=== PATIENT | female | born 1980 | race Caucasian/White ===

== ENCOUNTER 2018-07-18 12:54 | Emergency (ER) | payer MEDICAID, OTHER ==
[~2018-07-18] VITALS: Ht 162.6 cm; Wt 107.0 kg
[~2018-07-18 12:54] MED LIST: ABIL5 PO
[2018-07-18 12:56] VITALS: BP 148/55
== END 2018-07-18 17:42 | disposition home or self-care (01) ==
LOC: ER 12:54
DX: L03.115 Cellulitis of right lower limb (principal); I10 Essential (primary) hypertension; F20.9 Schizophrenia, unspecified; J45.909 Unspecified asthma, uncomplicated; Z88.0 Allergy status to penicillin
CPT/HCPCS: 99283

== ENCOUNTER 2019-01-21 18:50 | Emergency (ER) | payer OTHER ==
[~2019-01-21] VITALS: Ht 162.6 cm; Wt 101.0 kg
[2019-01-22] MEDS ORDERED: PREDNISONE 20MG TABLET PO STA (07:02)
[2019-01-22] MEDS ORDERED: IPRATROPIUM BROMIDE (0.02%) 0.5MG/2.5ML NEB HHN STA (07:02)
[2019-01-22] MEDS ORDERED: ALBUTEROL (0.083%) 2.5MG/3ML NEB HHN STA (07:02)
[2019-01-22 09:09] VITALS: BP 147/70
== END 2019-01-22 09:10 | disposition home or self-care (01) ==
LOC: ER 18:50
DX: J45.901 Unspecified asthma with (acute) exacerbation (principal); I10 Essential (primary) hypertension; F17.200 Nicotine dependence, unspecified, uncomplicated; Z88.0 Allergy status to penicillin; Z79.899 Other long term (current) drug therapy
CPT/HCPCS: 94644; 99285; J7512; J7611; Z7610

== ENCOUNTER 2019-04-22 11:33 | Emergency (ER) | payer OTHER ==
[~2019-04-22] VITALS: Ht 167.6 cm; Wt 113.0 kg
[2019-04-22] MEDS ORDERED: SODIUM CHLORIDE 0.9% 1,000 ML IV ONE (11:52)
[2019-04-22] MEDS ORDERED: METHYLPREDNISOLONE SOD SUCC 125 MG/2 ML VIAL IV STA (11:52)
[2019-04-22] MEDS ORDERED: IPRATROPIUM BROMIDE (0.02%) 0.5MG/2.5ML NEB HHN STA (11:52)
[2019-04-22] MEDS ORDERED: KETOROLAC 30MG/ML VIAL IV STA (11:52)
[2019-04-22] MEDS ORDERED: ALBUTEROL (0.083%) 2.5MG/3ML NEB HHN STA (11:52)
[2019-04-22] MEDS ORDERED: METOCLOPRAMIDE HCL 10MG/2ML VIAL IV ONE (12:00)
[2019-04-22 13:30] VITALS: BP 148/93
== END 2019-04-22 13:55 | disposition home or self-care (01) ==
LOC: ER 11:33
DX: J45.901 Unspecified asthma with (acute) exacerbation (principal); R51 Headache; I10 Essential (primary) hypertension; Z88.5 Allergy status to narcotic agent
CPT/HCPCS: 94644; 96361; 96374; 96375; 99285; J1885; J2765; J2930; J7030; J7611; Z7610

== ENCOUNTER 2019-07-08 11:06 | Emergency (ER) | payer OTHER ==
[~2019-07-08] VITALS: Ht 167.6 cm; Wt 105.0 kg
[2019-07-08] MEDS ORDERED: ONDANSETRON HCL 4MG/2ML INJ IV STA (11:24)
[2019-07-08] MEDS ORDERED: KETOROLAC 30MG/ML VIAL IV STA (11:24)
[2019-07-08] MEDS ORDERED: SODIUM CHLORIDE 0.9% 1,000 ML IV ONE (11:24)
[2019-07-08] MEDS ORDERED: FAMOTIDINE 20MG/2ML VIAL IV ONE (11:30)
[2019-07-08 12:04] LABS: BASOPHILS % 0.9 % (0.0-2.0); EOSINOPHILS % 6.6 % (0.0-5.0); HEMATOCRIT. 37.5 % (36.0-48.0); HEMOGLOBIN. 12.3 g/dL (12.0-16.0); LYMPHOCYTES % 26.6 % (20.0-50.0); MEAN CORPUSCULAR HEMOGLOBIN 26.1 pg (28.0-32.0); MEAN CORPUSCULAR VOLUME 79.4 fL (81.0-99.0); MEAN PLATELET VOLUME 9.9 fl (7.4-10.4); NEUTROPHILS % 58.9 % (40.0-76.0); PLATELET 214 x1000/uL (130-400); RED BLOOD CELL COUNT 4.73 mill/uL (4.2-5.4); RED CELL DISTRIBUTION WIDTH 15.6 % (11.6-14.6)
[2019-07-08 12:13] LABS: CHLORIDE 101 mEq/L (98-107)
[2019-07-08 12:38] LABS: CLARITY URINE CLOUDY (CLEAR); COLOR URINE YELLOW (YELLOW); KETONES URINE NEGATIVE (NEGATIVE); LEUKOCYTE ESTERASE URINE 1+ (NEGATIVE); NITRITE URINE NEGATIVE (NEGATIVE); OCCULT BLOOD URINE NEGATIVE (NEGATIVE); PROTEIN URINE 1+ (NEGATIVE); SPECIFIC GRAVITY URINE 1.028 (1.005-1.030)
[2019-07-08 13:38] VITALS: BP 133/85
== END 2019-07-08 13:50 | disposition home or self-care (01) ==
LOC: ER 11:23
DX: N39.0 Urinary tract infection, site not specified (principal); R11.2 Nausea with vomiting, unspecified; I10 Essential (primary) hypertension; F41.9 Anxiety disorder, unspecified
CPT/HCPCS: 36415; 80053; 81003; 81025; 83690; 85025; 87086; 96361; 96374; 96375; 99283; J1885; J2405; J3490; J7030; Z7610

== ENCOUNTER 2019-09-02 11:58 | Emergency (ER) | payer OTHER ==
[~2019-09-02] VITALS: Ht 162.6 cm; Wt 114.0 kg
[2019-09-02] MEDS ORDERED: METHYLPREDNISOLONE SOD SUCC 125 MG/2 ML VIAL IV STA (13:35)
[2019-09-02] MEDS ORDERED: IPRATROPIUM BROMIDE (0.02%) 0.5MG/2.5ML NEB HHN STA (13:35)
[2019-09-02] MEDS ORDERED: SODIUM CHLORIDE 0.9% 1,000 ML IV ONE (13:35)
[2019-09-02] MEDS ORDERED: ALBUTEROL (0.083%) 2.5MG/3ML NEB HHN STA (13:35)
[2019-09-02 14:37] LABS: BASOPHILS % 0.9 % (0.0-2.0); EOSINOPHILS % 10.8 % (0.0-5.0); HEMATOCRIT. 37.9 % (36.0-48.0); HEMOGLOBIN. 12.1 g/dL (12.0-16.0); LYMPHOCYTES % 16.5 % (20.0-50.0); MEAN CORPUSCULAR HEMOGLOBIN 25.7 pg (28.0-32.0); MEAN CORPUSCULAR VOLUME 80.3 fL (81.0-99.0); MONOCYTES % 8.4 % (2.0-8.0); NEUTROPHILS % 63.4 % (40.0-76.0); PLATELET 196 x1000/uL (130-400); RED BLOOD CELL COUNT 4.72 mill/uL (4.2-5.4); RED CELL DISTRIBUTION WIDTH 15.5 % (11.6-14.6)
[2019-09-02 14:44] LABS: CHLORIDE 107 mEq/L (98-107)
[2019-09-02 17:14] LABS: CLARITY URINE CLEAR (CLEAR); COLOR URINE YELLOW (YELLOW); KETONES URINE NEGATIVE (NEGATIVE); LEUKOCYTE ESTERASE URINE NEGATIVE (NEGATIVE); NITRITE URINE NEGATIVE (NEGATIVE); OCCULT BLOOD URINE 3+ (NEGATIVE); PROTEIN URINE 2+ (NEGATIVE); SPECIFIC GRAVITY URINE 1.037 (1.005-1.030); UROBILINOGEN URINE 0.2 E.U./dL (0.2-1.0)
[2019-09-02 17:52] VITALS: BP 150/92
== END 2019-09-02 18:08 | disposition home or self-care (01) ==
LOC: ER 11:58
DX: J45.901 Unspecified asthma with (acute) exacerbation (principal); N39.0 Urinary tract infection, site not specified; E11.9 Type 2 diabetes mellitus without complications; F17.210 Nicotine dependence, cigarettes, uncomplicated; Z71.6 Tobacco abuse counseling; Z88.0 Allergy status to penicillin; Z79.899 Other long term (current) drug therapy
CPT/HCPCS: 36415; 71045; 80053; 81003; 83880; 84484; 85025; 87086; 87804; 93005; 94640; 99284; 99406; J2930; J7030; J7611; Z7610

== ENCOUNTER 2019-10-07 16:53 | Emergency (ER) | payer OTHER ==
[~2019-10-07] VITALS: Ht 172.7 cm; Wt 91.0 kg
[2019-10-07] MEDS ORDERED: ALBUTEROL (0.083%) 2.5MG/3ML NEB HHN ONE ×2 (20:15→20:45)
[2019-10-07] MEDS ORDERED: PREDNISONE 20MG TABLET PO ONE (20:15)
[2019-10-07 21:35] VITALS: BP 155/89
== END 2019-10-07 20:21 | disposition home or self-care (01) ==
LOC: ER 16:53
DX: J45.901 Unspecified asthma with (acute) exacerbation (principal); E11.9 Type 2 diabetes mellitus without complications; Z88.0 Allergy status to penicillin
CPT/HCPCS: 94640; 99284; J7512; J7610; Z7610

== ENCOUNTER 2019-10-21 14:06 | Emergency (ER) | payer OTHER ==
[~2019-10-21] VITALS: Ht 162.6 cm; Wt 118.0 kg
[2019-10-21 14:18] VITALS: BP 170/97
[2019-10-21] MEDS ORDERED: ALBUTEROL (0.083%) 2.5MG/3ML NEB HHN STA ×2 (15:03→16:38)
[2019-10-21] MEDS ORDERED: PREDNISONE 20MG TABLET PO STA (15:03)
[2019-10-21] MEDS ORDERED: IPRATROPIUM BROMIDE (0.02%) 0.5MG/2.5ML NEB HHN STA ×2 (15:03→16:38)
== END 2019-10-21 18:08 | disposition home or self-care (01) ==
LOC: ER 14:21
DX: J45.901 Unspecified asthma with (acute) exacerbation (principal); L30.8 Other specified dermatitis; Z88.0 Allergy status to penicillin
CPT/HCPCS: 71045; 81025; 94640; 99284; J7512; J7610; Z7610

== ENCOUNTER 2019-11-10 10:18 | Emergency (ER) | payer OTHER ==
[~2019-11-10] VITALS: Ht 162.6 cm; Wt 118.0 kg
[2019-11-10 10:34] VITALS: BP 150/98
[2019-11-10] MEDS ORDERED: TRANEXAMIC ACID 1,000 MG/10 ML TP ONE (12:30)
== END 2019-11-10 15:21 | disposition home or self-care (01) ==
LOC: ER 10:18
DX: R04.0 Epistaxis (principal); J45.901 Unspecified asthma with (acute) exacerbation; G47.30 Sleep apnea, unspecified; Z88.0 Allergy status to penicillin
CPT/HCPCS: 99282

== ENCOUNTER 2020-01-02 09:48 | Emergency (ER) | payer OTHER ==
[~2020-01-02] VITALS: Ht 165.1 cm; Wt 113.8 kg
[2020-01-02] MEDS ORDERED: IPRATROPIUM BROMIDE (0.02%) 0.5MG/2.5ML NEB HHN STA (10:14)
[2020-01-02] MEDS ORDERED: ALBUTEROL (0.083%) 2.5MG/3ML NEB HHN STA (10:14)
[2020-01-02] MEDS ORDERED: PREDNISONE 20MG TABLET PO STA (10:14)
[2020-01-02 11:30] VITALS: BP 146/94
== END 2020-01-02 11:30 | disposition home or self-care (01) ==
LOC: ER 10:17
DX: J45.901 Unspecified asthma with (acute) exacerbation (principal); D64.9 Anemia, unspecified; Z88.0 Allergy status to penicillin
CPT/HCPCS: 71045; 94640; 99283; J7512; Z7610

== ENCOUNTER 2020-03-06 09:03 | Emergency (ER) | payer OTHER ==
[~2020-03-06] VITALS: Ht 165.1 cm; Wt 100.0 kg
[2020-03-06] MEDS ORDERED: PREDNISONE 20MG TABLET PO STA (09:30)
[2020-03-06] MEDS ORDERED: IPRATROPIUM BROMIDE (0.02%) 0.5MG/2.5ML NEB HHN STA (09:30)
[2020-03-06] MEDS ORDERED: ALBUTEROL (0.083%) 2.5MG/3ML NEB HHN STA (09:30)
[2020-03-06 11:16] VITALS: BP 150/78
== END 2020-03-06 11:17 | disposition home or self-care (01) ==
LOC: ER 09:03
DX: J45.901 Unspecified asthma with (acute) exacerbation (principal); Z88.0 Allergy status to penicillin
CPT/HCPCS: 81025; 94640; 99283; J7512; Z7610

== ENCOUNTER 2020-08-08 16:18 | Emergency (ER) | payer OTHER ==
[~2020-08-08] VITALS: Ht 162.6 cm; Wt 150.0 kg
[2020-08-08] MEDS ORDERED: PREDNISONE 20MG TABLET PO ONE (16:45)
[2020-08-08 18:20] VITALS: BP 133/90
== END 2020-08-08 18:20 | disposition home or self-care (01) ==
LOC: ER 16:18
DX: J45.901 Unspecified asthma with (acute) exacerbation (principal); I10 Essential (primary) hypertension; Z88.0 Allergy status to penicillin; Z79.899 Other long term (current) drug therapy
CPT/HCPCS: 71045; 81025; 93005; 99283; J7512

== ENCOUNTER 2021-01-17 12:02 | Emergency (ER) | payer OTHER ==
[~2021-01-17] VITALS: Ht 162.6 cm; Wt 94.0 kg
[2021-01-17] MEDS ORDERED: ONDANSETRON 4MG ODT PO STA (12:23)
[2021-01-17 12:43] LABS: CLARITY URINE CLOUDY (CLEAR); COLOR URINE YELLOW (YELLOW); KETONES URINE NEGATIVE (NEGATIVE); LEUKOCYTE ESTERASE URINE NEGATIVE (NEGATIVE); NITRITE URINE NEGATIVE (NEGATIVE); OCCULT BLOOD URINE NEGATIVE (NEGATIVE); PH URINE 7.5 (4.5-8.0); PROTEIN URINE TRACE (NEGATIVE)
[2021-01-17 12:47] LABS: BASOPHILS % 0.8 % (0.0-2.0); EOSINOPHILS % 1.9 % (0.0-5.0); HEMATOCRIT. 36.8 % (36.0-48.0); HEMOGLOBIN. 12.1 g/dL (12.0-16.0); LYMPHOCYTES % 17.2 % (20.0-50.0); MEAN CORPUSCULAR HEMOGLOBIN 26.1 pg (28.0-32.0); MEAN CORPUSCULAR VOLUME 79.4 fL (81.0-99.0); MEAN PLATELET VOLUME 9.4 fl (7.4-10.4); MONOCYTES % 4.7 % (2.0-8.0); NEUTROPHILS % 75.4 % (40.0-76.0); PLATELET 245 x1000/uL (130-400); RED BLOOD CELL COUNT 4.64 mill/uL (4.2-5.4); RED CELL DISTRIBUTION WIDTH 14.5 % (11.6-14.6)
[2021-01-17 12:54] LABS: CHLORIDE 104 mEq/L (98-107)
[2021-01-17 12:56] LABS: INR 0.9; PROTHROMBIN TIME 9.9 sec (9.6-11.0)
[2021-01-17 13:23] LABS: HCG SCREEN NEGATIVE
[2021-01-17 16:12] VITALS: BP 144/91
== END 2021-01-17 16:48 | disposition home or self-care (01) ==
LOC: ER 12:08
DX: R10.33 Periumbilical pain (principal); I10 Essential (primary) hypertension; J45.909 Unspecified asthma, uncomplicated; Z88.0 Allergy status to penicillin
CPT/HCPCS: 36415; 74176; 80053; 81003; 81025; 83690; 84703; 85025; 85610; 99284; Q0162

== ENCOUNTER 2021-07-02 02:34 | Emergency (ER) | payer OTHER ==
[~2021-07-02] VITALS: Ht 170.2 cm; Wt 119.2 kg
[2021-07-02] MEDS ORDERED: ALBU18HF2 IH (03:02)
[2021-07-02] MEDS ORDERED: ALBUTEROL (0.5%) 2.5MG/0.5ML NEB HHN ONE (03:15)
[2021-07-02] MEDS ORDERED: IPRATROPIUM BROMIDE (0.02%) 0.5MG/2.5ML NEB HHN ONE (03:15)
[2021-07-02] MEDS ORDERED: PREDNISONE 20MG TABLET PO ONE (03:15)
[2021-07-02 05:07] VITALS: BP 169/100
== END 2021-07-02 05:08 | disposition home or self-care (01) ==
LOC: ER 02:34
DX: J45.901 Unspecified asthma with (acute) exacerbation (principal); E11.9 Type 2 diabetes mellitus without complications; I10 Essential (primary) hypertension; Z88.0 Allergy status to penicillin; Z76.0 Encounter for issue of repeat prescription
CPT/HCPCS: 94640; 99283; J7512; Z7610

== ENCOUNTER 2021-07-18 08:38 | Inpatient (IN) | payer OTHER ==
[~2021-07-18] VITALS: Ht 167.6 cm; Wt 117.5 kg
[~2021-07-18 08:38] MED LIST changes: +ALBU18HF2 IH
[2021-07-18] MEDS ORDERED: IPRATROPIUM BROMIDE (0.02%) 0.5MG/2.5ML NEB HHN STA (09:04)
[2021-07-18] MEDS ORDERED: ALBUTEROL (0.083%) 2.5MG/3ML NEB HHN STA (09:04)
[2021-07-18] MEDS ORDERED: PREDNISONE 20MG TABLET PO STA (09:04)
[2021-07-18 09:33] LABS: BASOPHILS % 0.7 % (0.0-2.0); EOSINOPHILS % 8.5 % (0.0-5.0); HEMATOCRIT. 39.1 % (36.0-48.0); HEMOGLOBIN. 12.4 g/dL (12.0-16.0); LYMPHOCYTES % 16.1 % (20.0-50.0); MEAN CORPUSCULAR HEMOGLOBIN 25.4 pg (28.0-32.0); MEAN CORPUSCULAR VOLUME 80.4 fL (81.0-99.0); MEAN PLATELET VOLUME 10.5 fl (7.4-10.4); MONOCYTES % 6.2 % (2.0-8.0); NEUTROPHILS % 68.5 % (40.0-76.0); PLATELET 234 x1000/uL (130-400); RED BLOOD CELL COUNT 4.86 mill/uL (4.2-5.4); RED CELL DISTRIBUTION WIDTH 14.6 % (11.6-14.6)
[2021-07-18 09:36] LABS: CHLORIDE 105 mEq/L (98-107)
[2021-07-18] MEDS ORDERED: METHYLPREDNISOLONE SOD SUCC 125 MG/2 ML VIAL IV STA (09:56)
[2021-07-18] MEDS ORDERED: MAGNESIUM 2 G PREMIX 50 ML IV STA (09:56)
[2021-07-18 15:11] LABS: BG BASE EXCESS 0.8 mmol/L (-2.0-2.0); BG CARBOXYHEMOGLOBIN 0.3 % (0.5-1.5); BG DEOXYHEMOGLOBIN 0.8 % (0.0-5.0); BG FRACTION INSPIRED OXYGEN 60; BG HCO3 ACT 28.6 mmol/L (22.0-26.0); BG METHEMOGLOBIN 0.4 % (0.0-1.5); BG OXYGEN SATURATION 99.2 % (92.0-98.5); BG OXYHEMOGLOBIN 98.5 % (94.0-97.0); BG PH 7.296 (7.350-7.450); BG SAMPLE SITE RIGHT RADIAL; BG TOTAL HEMOGLOBIN 13.7 g/dL (12.0-18.0); BG VENT MODE MASK - BIPAP
[2021-07-18] MEDS ORDERED: DOCUSATE SODIUM 100MG CAPSULE PO PRN (16:30)
[2021-07-18] MEDS ORDERED: CLONIDINE 0.1MG TABLET PO PRN (16:30)
[2021-07-18] MEDS ORDERED: IPRATROPIUM/ALBUTEROL 0.5-3(2.5)MG/3ML NEB NEB PRN (16:30)
[2021-07-18] MEDS ORDERED: ONDANSETRON HCL 4MG/2ML INJ IV PRN (16:30)
[2021-07-18] MEDS ORDERED: GUAIFENESIN 200MG/10ML SUGAR FREE UDC PO PRN (16:30)
[2021-07-18] MEDS ORDERED: ACETAMINOPHEN 650MG SUPP PR PRN (16:30)
[2021-07-18] MEDS ORDERED: DIPHENHYDRAMINE 50MG/ML VIAL IV PRN (16:30)
[2021-07-18] MEDS ORDERED: NA PHOS,M-B/NA PHOS,DI-BA ENEMA 118ML PR PRN (16:30)
[2021-07-18] MEDS ORDERED: ACETAMINOPHEN 325MG TABLET PO PRN (16:30)
[2021-07-18] MEDS ORDERED: LORAZEPAM 0.5MG TABLET PO PRN (16:30)
[2021-07-18] MEDS ORDERED: MAGNESIUM/ALUMINUM HYDROXIDE/SIMETHICONE 30ML UDC PO PRN (16:30)
[2021-07-18] MEDS ORDERED: HYDROCODONE/ACETAMINOPHEN 5/325MG TABLET PO PRN (16:30)
[2021-07-18 17:50] LABS: INR 0.9; PROTHROMBIN TIME 10.2 sec (9.6-11.0)
[2021-07-18] MEDS: METHYLPREDNISOLONE SOD SUCC 40 MG/ML VIAL IV SCH (17:53)
[2021-07-18] MEDS ORDERED: LEVOFLOXACIN 500MG PREMIX 100 ML IV SCH (18:00)
[2021-07-18] MEDS: ENOXAPARIN 30MG/0.3ML SYR SUBCUT SCH (20:44)
[2021-07-18] MEDS ORDERED: FAMOTIDINE 20MG TABLET PO SCH (21:00)
[2021-07-18 22:00] VITALS: BP 121/72
[2021-07-18 22:54] VITALS: BP 121/72
[2021-07-19] VITALS (10 sets, daily range): BP systolic 137–174; BP diastolic 67–109
[2021-07-19] MEDS: IPRATROPIUM/ALBUTEROL 0.5-3(2.5)MG/3ML NEB NEB SCH ×3 (01:55→13:20)
[2021-07-19] MEDS: METHYLPREDNISOLONE SOD SUCC 40 MG/ML VIAL IV SCH ×2 (04:31→09:23)
[2021-07-19 07:00] LABS: BASOPHILS % 0.2 % (0.0-2.0); CHLORIDE 103 mEq/L (98-107); HEMATOCRIT. 37.6 % (36.0-48.0); HEMOGLOBIN. 11.8 g/dL (12.0-16.0); LYMPHOCYTES % 8.1 % (20.0-50.0); MEAN CORPUSCULAR VOLUME 79.5 fL (81.0-99.0); MEAN PLATELET VOLUME 10.7 fl (7.4-10.4); MONOCYTES % 1.7 % (2.0-8.0); PLATELET 259 x1000/uL (130-400); RED BLOOD CELL COUNT 4.72 mill/uL (4.2-5.4); RED CELL DISTRIBUTION WIDTH 14.6 % (11.6-14.6)
[2021-07-19 07:11] LABS: CREATINE KINASE 276 IU/L (26-192)
[2021-07-19 07:14] LABS: CREATINE KINASE MB FRACTION 3.5 ng/mL (0.5-3.6)
[2021-07-19] MEDS: ENOXAPARIN 30MG/0.3ML SYR SUBCUT SCH (09:23)
[2021-07-19 11:48] LABS: BG BASE EXCESS 0.2 mmol/L (-2.0-2.0); BG DEOXYHEMOGLOBIN 5.7 % (0.0-5.0); BG FRACTION INSPIRED OXYGEN 21; BG METHEMOGLOBIN 0.2 % (0.0-1.5); BG OXYGEN SATURATION 94.3 % (92.0-98.5); BG OXYHEMOGLOBIN 94.1 % (94.0-97.0); BG PCO2 46.5 mmHg (35.0-45.0); BG PH 7.365 (7.350-7.450); BG PO2 73.9 mmHg (75.0-100.0); BG SAMPLE SITE RIGHT RADIAL; BG TOTAL HEMOGLOBIN 12.2 g/dL (12.0-18.0); BG VENT MODE ROOM AIR
[2021-07-19] MEDS ORDERED: LEVO500T89 MT (15:03)
[2021-07-19] MEDS ORDERED: IPRA3AMP9 NEB (15:03)
[2021-07-19] MEDS ORDERED: P20 PO (15:03)
[2021-07-19] MEDS ORDERED: NALOXONE HCL 0.4MG/ML VIAL IV PRN (15:30)
== END 2021-07-19 18:05 | disposition home or self-care (01) | DRG 133 ==
LOC: ER 09:41 → 5EST 13:26 → EDBEDREQTM 13:29 → EDBEDREQ 13:29 → SUPCPDRO 16:07 → ENRESERV 19:59 → 5EST 22:48
PROVIDERS: ADMIT Internal Medicine; ATTEND Internal Medicine
PROC: 5A09357 Assistance with Respiratory Ventilation, Less than 24 Consecutive Hours, Continuous Positive Airway Pressure (ICD-10-PCS; principal; 2021-07-18)
DX: J96.00 Acute respiratory failure, unspecified whether with hypoxia or hypercapnia (principal); E87.2 Acidosis; J45.901 Unspecified asthma with (acute) exacerbation; E66.2 Morbid (severe) obesity with alveolar hypoventilation; F29 Unspecified psychosis not due to a substance or known physiological condition; I10 Essential (primary) hypertension; Z20.822 Contact with and (suspected) exposure to COVID-19; Z79.899 Other long term (current) drug therapy; Z88.0 Allergy status to penicillin; Z68.41 Body mass index [BMI] 40.0-44.9, adult
CPT/HCPCS: 36415; 36600; 71045; 80053; 82375; 82550; 82553; 82805; 83880; 84443; 84484; 85025; 87426; 87804; 93005; 93306; 93970; 94640; 94660; 99291; J1650; J1956; J2920; J2930; J3475; J7040

== ENCOUNTER 2021-09-11 18:19 | Emergency (ER) | payer OTHER ==
[~2021-09-11] VITALS: Ht 162.6 cm; Wt 117.0 kg
[~2021-09-11 18:19] MED LIST changes: +IPRA3AMP9 NEB; +LEVO500T89 MT; +P20 PO
[2021-09-11] MEDS ORDERED: DEXAMETHASONE 4MG TABLET PO ONE (19:15)
[2021-09-11] MEDS ORDERED: ACETAMINOPHEN 325MG TABLET PO STA (19:20)
[2021-09-11 20:09] LABS: BASOPHILS % 0.6 % (0.0-2.0); EOSINOPHILS % 5.9 % (0.0-5.0); HEMATOCRIT. 38.1 % (36.0-48.0); LYMPHOCYTES % 18.4 % (20.0-50.0); MEAN CORPUSCULAR HEMOGLOBIN 24.8 pg (28.0-32.0); MEAN CORPUSCULAR VOLUME 78.8 fL (81.0-99.0); MEAN PLATELET VOLUME 10.1 fl (7.4-10.4); MONOCYTES % 4.1 % (2.0-8.0); PLATELET 221 x1000/uL (130-400); RED BLOOD CELL COUNT 4.84 mill/uL (4.2-5.4); RED CELL DISTRIBUTION WIDTH 14.7 % (11.6-14.6)
[2021-09-11 20:19] LABS: CHLORIDE 106 mEq/L (98-107)
[2021-09-11] MEDS ORDERED: IPRATROPIUM/ALBUTEROL 0.5-3(2.5)MG/3ML NEB HHN ONE ×2 (21:30→22:30)
[2021-09-11] MEDS ORDERED: P20 PO (22:30)
[2021-09-11] MEDS ORDERED: ALBU18HF2 IH ×2 (22:30)
[2021-09-11] MEDS ORDERED: DEXA6TAB MT (22:30)
[2021-09-11] MEDS ORDERED: ALBU90AE INH (22:30)
[2021-09-11] MEDS ORDERED: ALBU05 NEB (22:31)
[2021-09-11 23:52] VITALS: BP 178/95
== END 2021-09-11 23:52 | disposition home or self-care (01) ==
LOC: ER 18:19
DX: J45.901 Unspecified asthma with (acute) exacerbation (principal); I10 Essential (primary) hypertension; Z88.0 Allergy status to penicillin; Z79.899 Other long term (current) drug therapy; Z20.822 Contact with and (suspected) exposure to COVID-19
CPT/HCPCS: 36415; 80053; 83690; 85025; 87426; 94640; 99284; Z7610; J8540

== ENCOUNTER 2021-09-23 02:54 | Emergency (ER) | payer OTHER ==
[~2021-09-23] VITALS: Ht 170.2 cm; Wt 91.0 kg
[~2021-09-23 02:54] MED LIST changes: +ALBU05 NEB; +ALBU90AE INH; +DEXA6TAB MT
[2021-09-23] MEDS ORDERED: ALBUTEROL (0.083%) 2.5MG/3ML NEB HHN STA (03:03)
[2021-09-23] MEDS ORDERED: PREDNISONE 20MG TABLET PO STA (03:03)
[2021-09-23] MEDS ORDERED: IPRATROPIUM BROMIDE (0.02%) 0.5MG/2.5ML NEB HHN STA (03:03)
[2021-09-23] MEDS ORDERED: AMLODIPINE 5MG TABLET PO NR (03:30)
[2021-09-23 03:49] VITALS: BP 140/96
[2021-09-23] MEDS ORDERED: AZIT250T12 MT (04:52)
[2021-09-23] MEDS ORDERED: IPRA3AMP9 NEB (04:52)
[2021-09-23] MEDS ORDERED: ALBU90AE INH (04:52)
[2021-09-23] MEDS ORDERED: P20 PO (04:52)
== END 2021-09-23 05:24 | disposition home or self-care (01) ==
LOC: ER 02:54
DX: J44.1 Chronic obstructive pulmonary disease with (acute) exacerbation (principal); Z79.899 Other long term (current) drug therapy; Z88.0 Allergy status to penicillin; Z20.822 Contact with and (suspected) exposure to COVID-19
CPT/HCPCS: 71045; 87426; 93005; 94640; 99285; J7512; Z7610

== ENCOUNTER 2021-10-05 14:03 | Emergency (ER) | payer OTHER ==
[~2021-10-05] VITALS: Ht 167.6 cm; Wt 118.0 kg
[~2021-10-05 14:03] MED LIST changes: +AZIT250T12 MT
[2021-10-05 14:12] VITALS: BP 160/99
== END 2021-10-05 15:52 | disposition home or self-care (01) ==
LOC: ER 14:03
DX: R04.0 Epistaxis (principal); I11.0 Hypertensive heart disease with heart failure; I50.9 Heart failure, unspecified; J45.909 Unspecified asthma, uncomplicated; E11.9 Type 2 diabetes mellitus without complications; Z79.899 Other long term (current) drug therapy
CPT/HCPCS: 99283

== ENCOUNTER 2021-10-21 18:11 | Emergency (ER) | payer OTHER ==
[~2021-10-21] VITALS: Ht 167.6 cm; Wt 97.0 kg
[2021-10-21 18:12] VITALS: BP 163/100
[2021-10-21] MEDS ORDERED: ALBUTEROL (0.083%) 2.5MG/3ML NEB HHN STA (18:48)
[2021-10-21] MEDS ORDERED: IPRATROPIUM BROMIDE (0.02%) 0.5MG/2.5ML NEB HHN STA (18:48)
[2021-10-21] MEDS ORDERED: PREDNISONE 20MG TABLET PO STA (18:48)
[2021-10-21 19:46] LABS: BASOPHILS % 0.9 % (0.0-2.0); EOSINOPHILS % 5.8 % (0.0-5.0); HEMATOCRIT. 38.1 % (36.0-48.0); HEMOGLOBIN. 12.2 g/dL (12.0-16.0); LYMPHOCYTES % 21.9 % (20.0-50.0); MEAN CORPUSCULAR HEMOGLOBIN 25.3 pg (28.0-32.0); MEAN CORPUSCULAR VOLUME 78.8 fL (81.0-99.0); MEAN PLATELET VOLUME 10.7 fl (7.4-10.4); MONOCYTES % 5.1 % (2.0-8.0); NEUTROPHILS % 66.3 % (40.0-76.0); PLATELET 242 x1000/uL (130-400); RED BLOOD CELL COUNT 4.83 mill/uL (4.2-5.4); RED CELL DISTRIBUTION WIDTH 15.4 % (11.6-14.6)
[2021-10-21 19:54] LABS: CHLORIDE 107 mEq/L (98-107)
[2021-10-21] MEDS ORDERED: P50 MT (23:54)
[2021-10-22] MEDS ORDERED: ALBU6.7H15 IH (00:08)
== END 2021-10-22 00:13 | disposition home or self-care (01) ==
LOC: ER 18:11
DX: J45.901 Unspecified asthma with (acute) exacerbation (principal); I11.0 Hypertensive heart disease with heart failure; I50.9 Heart failure, unspecified; E11.9 Type 2 diabetes mellitus without complications
CPT/HCPCS: 36415; 71045; 80053; 83880; 84484; 85025; 93005; 94640; 99285; J7512; Z7610

== ENCOUNTER 2021-10-30 20:32 | Emergency (ER) | payer OTHER ==
[~2021-10-30] VITALS: Ht 165.1 cm; Wt 91.0 kg
[~2021-10-30 20:32] MED LIST changes: +ALBU6.7H15 IH; +P50 MT
[2021-10-30] MEDS ORDERED: ALBUTEROL (0.083%) 2.5MG/3ML NEB HHN STA (20:49)
[2021-10-30] MEDS ORDERED: METHYLPREDNISOLONE SOD SUCC 125 MG/2 ML VIAL IV STA (20:49)
[2021-10-30] MEDS ORDERED: IPRATROPIUM BROMIDE (0.02%) 0.5MG/2.5ML NEB HHN STA (20:49)
[2021-10-30] MEDS ORDERED: MAGNESIUM 2 G PREMIX 50 ML IV ONE (21:00)
[2021-10-30 23:17] LABS: BASOPHILS % 1.1 % (0.0-2.0); EOSINOPHILS % 4.9 % (0.0-5.0); HEMOGLOBIN. 12.4 g/dL (12.0-16.0); LYMPHOCYTES % 21.2 % (20.0-50.0); MEAN CORPUSCULAR HEMOGLOBIN 25.4 pg (28.0-32.0); MEAN CORPUSCULAR VOLUME 79.8 fL (81.0-99.0); MEAN PLATELET VOLUME 9.9 fl (7.4-10.4); MONOCYTES % 6.8 % (2.0-8.0); PLATELET 258 x1000/uL (130-400); RED BLOOD CELL COUNT 4.89 mill/uL (4.2-5.4); RED CELL DISTRIBUTION WIDTH 15.3 % (11.6-14.6)
[2021-10-30 23:26] LABS: CHLORIDE 102 mEq/L (98-107)
[2021-10-30 23:57] LABS: HCG SCREEN NEGATIVE
[2021-10-31] MEDS ORDERED: ALBU18HF2 IH (00:24)
[2021-10-31 00:47] VITALS: BP 152/91
== END 2021-10-31 00:47 | disposition home or self-care (01) ==
LOC: ER 20:32
DX: J45.901 Unspecified asthma with (acute) exacerbation (principal); I11.0 Hypertensive heart disease with heart failure; I50.9 Heart failure, unspecified; E11.9 Type 2 diabetes mellitus without complications; Z88.0 Allergy status to penicillin; Z79.899 Other long term (current) drug therapy
CPT/HCPCS: 36415; 71045; 80053; 83690; 83880; 84484; 84703; 85025; 94640; 96365; 96375; 99284; J2930; J3475; Z7610

== ENCOUNTER 2021-12-01 11:37 | Emergency (ER) | payer OTHER ==
[~2021-12-01] VITALS: Ht 172.7 cm; Wt 120.0 kg
[2021-12-01] MEDS ORDERED: PREDNISONE 20MG TABLET PO STA (12:05)
[2021-12-01 12:31] LABS: CLARITY URINE CLEAR (CLEAR); COLOR URINE YELLOW (YELLOW); KETONES URINE NEGATIVE (NEGATIVE); LEUKOCYTE ESTERASE URINE NEGATIVE (NEGATIVE); NITRITE URINE NEGATIVE (NEGATIVE); OCCULT BLOOD URINE NEGATIVE (NEGATIVE); PH URINE 7.5 (4.5-8.0); PROTEIN URINE NEGATIVE (NEGATIVE); UROBILINOGEN URINE 0.2 E.U./dL (0.2-1.0)
[2021-12-01 12:49] LABS: BASOPHILS % 0.4 % (0.0-2.0); EOSINOPHILS % 9.6 % (0.0-5.0); HEMATOCRIT. 33.7 % (36.0-48.0); HEMOGLOBIN. 11.1 g/dL (12.0-16.0); LYMPHOCYTES % 19.2 % (20.0-50.0); MEAN CORPUSCULAR HEMOGLOBIN 26.3 pg (28.0-32.0); MEAN CORPUSCULAR VOLUME 80.2 fL (81.0-99.0); MONOCYTES % 5.1 % (2.0-8.0); NEUTROPHILS % 65.7 % (40.0-76.0); PLATELET 224 x1000/uL (130-400); RED CELL DISTRIBUTION WIDTH 14.9 % (11.6-14.6)
[2021-12-01 13:08] LABS: CHLORIDE 104 mEq/L (98-107)
[2021-12-01 13:41] LABS: HCG SCREEN NEGATIVE
[2021-12-01] MEDS ORDERED: ALBU18HF2 IH (14:22)
[2021-12-01] MEDS ORDERED: P20 PO (14:22)
[2021-12-01] MEDS ORDERED: ALBU05 NEB (14:22)
[2021-12-01 14:45] VITALS: BP 152/81
== END 2021-12-01 14:47 | disposition home or self-care (01) ==
LOC: ER 11:45
DX: J44.1 Chronic obstructive pulmonary disease with (acute) exacerbation (principal); I10 Essential (primary) hypertension; E11.9 Type 2 diabetes mellitus without complications; F17.210 Nicotine dependence, cigarettes, uncomplicated; Z88.0 Allergy status to penicillin
CPT/HCPCS: 36415; 71045; 80053; 81003; 83690; 83880; 84484; 84703; 85025; 93005; 99285; J7512

== ENCOUNTER 2022-03-10 11:38 | Emergency (ER) | payer OTHER ==
[~2022-03-10] VITALS: Ht 172.7 cm; Wt 110.0 kg
[~2022-03-10 11:38] MED LIST changes: -LEVO500T89 MT; +LEVO500T90 MT
[2022-03-10 15:39] LABS: BASOPHILS % 0.5 % (0.0-2.0); EOSINOPHILS % 6.3 % (0.0-5.0); HEMATOCRIT. 36.8 % (36.0-48.0); HEMOGLOBIN. 11.7 g/dL (12.0-16.0); MEAN CORPUSCULAR VOLUME 81.9 fL (81.0-99.0); MEAN PLATELET VOLUME 9.4 fl (7.4-10.4); NEUTROPHILS % 71.2 % (40.0-76.0); PLATELET 228 x1000/uL (130-400); RED BLOOD CELL COUNT 4.49 mill/uL (4.2-5.4); RED CELL DISTRIBUTION WIDTH 14.4 % (11.6-14.6)
[2022-03-10 15:55] LABS: CHLORIDE 103 mEq/L (98-107)
[2022-03-10] MEDS ORDERED: METHYLPREDNISOLONE SOD SUCC 125 MG/2 ML VIAL IV STA (19:57)
[2022-03-10] MEDS ORDERED: IPRATROPIUM BROMIDE (0.02%) 0.5MG/2.5ML NEB HHN STA (19:57)
[2022-03-10] MEDS ORDERED: MAGNESIUM 2 G PREMIX 50 ML IV ONE (20:00)
[2022-03-10] MEDS ORDERED: ONDANSETRON HCL 4MG/2ML INJ IV ONE (20:45)
[2022-03-10] MEDS: ALBUTEROL (0.083%) 2.5MG/3ML NEB HHN SCH ×3 (20:50→21:39)
[2022-03-10] MEDS ORDERED: ALBU6.7H9 INH (22:27)
[2022-03-10] MEDS ORDERED: PRED10TA23 MT (22:27)
[2022-03-10 22:56] VITALS: BP 147/87
== END 2022-03-10 23:01 | disposition home or self-care (01) ==
LOC: ER 11:38
DX: J45.909 Unspecified asthma, uncomplicated (principal); F41.9 Anxiety disorder, unspecified; J44.9 Chronic obstructive pulmonary disease, unspecified; E11.9 Type 2 diabetes mellitus without complications; I10 Essential (primary) hypertension; Z79.899 Other long term (current) drug therapy; Z88.0 Allergy status to penicillin
CPT/HCPCS: 36415; 71045; 80053; 83880; 84484; 85025; 93005; 94644; 96365; 96375; 99285; J2405; J2930; J3475; Z7610

== ENCOUNTER 2022-05-25 11:24 | Emergency (ER) | payer OTHER ==
[~2022-05-25] VITALS: Ht 165.1 cm; Wt 117.0 kg
[~2022-05-25 11:24] MED LIST changes: +ALBU6.7H9 INH; +PRED10TA23 MT
[2022-05-25] MEDS ORDERED: ALBUTEROL (0.083%) 2.5MG/3ML NEB HHN STA (12:55)
[2022-05-25] MEDS ORDERED: PREDNISONE 20MG TABLET PO STA (12:55)
[2022-05-25] MEDS ORDERED: IPRATROPIUM BROMIDE (0.02%) 0.5MG/2.5ML NEB HHN STA (12:55)
[2022-05-25 15:17] VITALS: BP 175/96
[2022-05-25] MEDS ORDERED: AMLO10TA80 MT (15:18)
[2022-05-25] MEDS ORDERED: ALBU05 NEB (15:18)
[2022-05-25] MEDS ORDERED: ALBU18HF2 IH (15:18)
[2022-05-25] MEDS ORDERED: LISI20TA31 MT (15:18)
[2022-05-25] MEDS ORDERED: P20 MT (15:18)
== END 2022-05-25 15:29 | disposition home or self-care (01) ==
LOC: ER 15:23
DX: J45.901 Unspecified asthma with (acute) exacerbation (principal); Z76.0 Encounter for issue of repeat prescription; I10 Essential (primary) hypertension; E11.9 Type 2 diabetes mellitus without complications; Z88.0 Allergy status to penicillin
CPT/HCPCS: 94640; 94664; 99283; J7512; Z7610

== ENCOUNTER 2022-05-30 00:39 | Emergency (ER) | payer OTHER ==
[~2022-05-30] VITALS: Ht 165.1 cm; Wt 136.0 kg
[~2022-05-30 00:39] MED LIST changes: +AMLO10TA80 MT; +LISI20TA31 MT; +P20 MT
[2022-05-30] MEDS ORDERED: ALBUTEROL (0.083%) 2.5MG/3ML NEB HHN STA (01:11)
[2022-05-30] MEDS ORDERED: IPRATROPIUM BROMIDE (0.02%) 0.5MG/2.5ML NEB HHN STA (01:11)
[2022-05-30] MEDS ORDERED: PREDNISONE 20MG TABLET PO STA (01:11)
[2022-05-30 04:06] VITALS: BP 156/69
[2022-05-30] MEDS ORDERED: PRED10TA23 MT (04:22)
== END 2022-05-30 04:46 | disposition home or self-care (01) ==
LOC: ER 00:39
DX: J45.901 Unspecified asthma with (acute) exacerbation (principal); I10 Essential (primary) hypertension; E11.9 Type 2 diabetes mellitus without complications; Z88.0 Allergy status to penicillin
CPT/HCPCS: 71045; 93005; 94640; 99283; J7512; Z7610

== ENCOUNTER 2022-06-18 08:02 | Emergency (ER) | payer OTHER ==
[~2022-06-18] VITALS: Ht 167.6 cm; Wt 104.0 kg
[~2022-06-18 08:02] MED LIST changes: +ALBU6.7H3 INH; -ALBU6.7H9 INH; +LEVO-65 MT; -LEVO500T90 MT
[2022-06-18] MEDS ORDERED: IPRATROPIUM BROMIDE (0.02%) 0.5MG/2.5ML NEB HHN STA (08:14)
[2022-06-18] MEDS ORDERED: METHYLPREDNISOLONE SOD SUCC 125 MG/2 ML VIAL IV STA (08:14)
[2022-06-18] MEDS ORDERED: ALBUTEROL (0.083%) 2.5MG/3ML NEB HHN STA (08:14)
[2022-06-18 09:07] LABS: BASOPHILS % 0.5 % (0.0-2.0); EOSINOPHILS % 5.6 % (0.0-5.0); HEMATOCRIT. 40.2 % (36.0-48.0); HEMOGLOBIN. 13.1 g/dL (12.0-16.0); LYMPHOCYTES % 19.4 % (20.0-50.0); MEAN CORPUSCULAR HEMOGLOBIN 26.4 pg (28.0-32.0); MEAN PLATELET VOLUME 9.8 fl (7.4-10.4); MONOCYTES % 6.8 % (2.0-8.0); NEUTROPHILS % 67.7 % (40.0-76.0); PLATELET 220 x1000/uL (130-400); RED BLOOD CELL COUNT 4.96 mill/uL (4.2-5.4); RED CELL DISTRIBUTION WIDTH 14.4 % (11.6-14.6)
[2022-06-18 09:11] LABS: CHLORIDE 103 mEq/L (98-107)
[2022-06-18 09:18] LABS: HCG SCREEN NEGATIVE
[2022-06-18 09:40] VITALS: BP 159/73
[2022-06-18] MEDS ORDERED: P20 MT (11:47)
[2022-06-18] MEDS ORDERED: ALBU6.7H3 INH (11:47)
[2022-06-18] MEDS ORDERED: ALBU05 NEB (11:47)
== END 2022-06-18 13:25 | disposition home or self-care (01) ==
LOC: ER 08:02
DX: J45.901 Unspecified asthma with (acute) exacerbation (principal); J44.1 Chronic obstructive pulmonary disease with (acute) exacerbation; I10 Essential (primary) hypertension; E11.9 Type 2 diabetes mellitus without complications; Z88.0 Allergy status to penicillin; Z79.899 Other long term (current) drug therapy
CPT/HCPCS: 36415; 71045; 80053; 84484; 84703; 85025; 94644; 96374; 99285; J2930; Z7610

== ENCOUNTER 2022-07-02 12:31 | Emergency (ER) | payer OTHER ==
[~2022-07-02] VITALS: Ht 170.2 cm; Wt 113.0 kg
[2022-07-02] MEDS ORDERED: PREDNISONE 20MG TABLET PO ONE (13:00)
[2022-07-02 13:31] VITALS: BP 148/80
[2022-07-02] MEDS ORDERED: ALBU6.7H3 INH (13:31)
[2022-07-02] MEDS ORDERED: P50 MT (13:31)
[2022-07-02] MEDS ORDERED: ALBU05 NEB (13:31)
== END 2022-07-02 15:16 | disposition home or self-care (01) ==
LOC: ER 12:31
DX: J44.1 Chronic obstructive pulmonary disease with (acute) exacerbation (principal); F17.200 Nicotine dependence, unspecified, uncomplicated; E11.9 Type 2 diabetes mellitus without complications; I10 Essential (primary) hypertension; Z88.0 Allergy status to penicillin; Z79.899 Other long term (current) drug therapy
CPT/HCPCS: 99283; J7512

== ENCOUNTER 2022-08-13 15:08 | Emergency (ER) | payer OTHER ==
[~2022-08-13] VITALS: Ht 170.2 cm; Wt 137.0 kg
[2022-08-13] MEDS ORDERED: CYCLOBENZAPRINE 10MG TABLET PO ONE (17:00)
[2022-08-13] MEDS ORDERED: KETOROLAC 60MG/2ML VIAL IM ONE (17:00)
[2022-08-13 18:45] LABS: CLARITY URINE CLOUDY (CLEAR); COLOR URINE YELLOW (YELLOW); KETONES URINE NEGATIVE (NEGATIVE); LEUKOCYTE ESTERASE URINE NEGATIVE (NEGATIVE); NITRITE URINE NEGATIVE (NEGATIVE); OCCULT BLOOD URINE NEGATIVE (NEGATIVE); PROTEIN URINE NEGATIVE (NEGATIVE); SPECIFIC GRAVITY URINE 1.016 (1.005-1.030); UROBILINOGEN URINE 0.2 E.U./dL (0.2-1.0)
[2022-08-13] MEDS ORDERED: ALBU6.7H3 INH (19:28)
[2022-08-13] MEDS ORDERED: NAPR-677 MT (19:28)
[2022-08-13 19:56] VITALS: BP 144/63
== END 2022-08-13 19:57 | disposition home or self-care (01) ==
LOC: ER 15:08
DX: S39.012A Strain of muscle, fascia and tendon of lower back, initial encounter (principal); J45.909 Unspecified asthma, uncomplicated; Z88.0 Allergy status to penicillin; Z79.899 Other long term (current) drug therapy; Z76.0 Encounter for issue of repeat prescription; I10 Essential (primary) hypertension; E11.9 Type 2 diabetes mellitus without complications; W01.0XXA Fall on same level from slipping, tripping and stumbling without subsequent striking against object, initial encounter; Y93.89 Activity, other specified; Y92.89 Other specified places as the place of occurrence of the external cause; Y99.8 Other external cause status
CPT/HCPCS: 72100; 81003; 81025; 96372; 99284; J1885